=== PATIENT | male | born 1985 | race Caucasian/White ===

== ENCOUNTER 2021-09-15 06:07 | Emergency (ER) | payer SELFPAY ==
--- NOTE | 2021-09-15 06:27 | EDM.PDOC ---
<Finsese Hartmann - Last Filed: 09/15/21 06:37> ED HPI GENERAL MEDICAL PROBLEM - General Chief Complaint: General Stated Complaint: COUGHING/CONGESTION/SORE THROAT Time Seen by Provider: 09/15/21 07:19 - History of Present Illness INITIAL COMMENTS - FREE TEXT/NARRATIVE: CHIEF COMPLAINT(S): "Feeling bad." HISTORY OF PRESENT ILLNESS: This is a 36-year-old man without any significant past medical history who comes to the emergency department with a chief complaint of "feeling bad." Patient states that he is "feeling bad." The patient states that for approximately 2 days now he has been experiencing body aches and cold-like symptoms. He states he is also experiencing a sore throat but denies any trouble swallowing. He states that he has a cough which is productive of sputum. He describes a headache which is bifrontal not associated with any blurry vision, double vision or loss of vision. He denies any trouble walking speaking or swallowing. He states that he tried Tylenol without any relief. Last dose was 8 PM. He denies any chest pain, syncope, lower extremity edema, recent travel, recent surgery or prior history of DVT or PE. He states that he is incompletely vaccinated and has had 1 dose of what he thinks is the Pfizer vaccine. He denies any loss of taste or smell. REVIEW OF SYSTEMS: Constitutional: Denies fever, chills. Eyes: Denies eye pain Ears, Nose, Mouth, & Throat: Positive for runny nose denies earache Cardiovascular: Denies chest pain Respiratory: Positive for nonproductive cough. Denies shortness of breath Gastrointestinal: Positive for decreased appetite denies Nausea, vomiting, diarrhea, hematochezia. Genitourinary: Denies hematuria Skin:Denies a rash MSK: Positive for body aches Neurological: Positive for headache. Denies blurred vision, double vision, loss of vision, numbness, tingling, weakness Psychiatric: Denies depression PAST MEDICAL HISTORY: As per history of present illness and as reviewed below otherwise noncontributory. SURGICAL HISTORY: As per history of present illness and as reviewed below otherwise noncontributory. SOCIAL HISTORY: As per history of present illness and as reviewed below otherwise noncontributory. FAMILY HISTORY: As per history of present illness and as reviewed below otherwise noncontributory. EXAMINATION OF ORGAN SYSTEMS/BODY AREAS: Constitutional: Blood pressure was 111/71, heart rate 94, respiratory rate 17 with an oxygen saturation 98% on room air. Temperature 36.5 General: Young man who does not appear to be in acute distress Psychiatric: Appropriate mood and affect. Eyes: No scleral icterus or conjunctival erythema ENMT: Moist mucous membranes. No pharyngeal erythema Cardiovascular: Regular, rate, and rhythm. No gallops, murmurs, or rubs. Bilateral upper extremity pulses symmetric and intact. No peripheral edema. No JVD. Respiratory: Lungs clear to auscultation bilaterally. No wheezes, rales, or rhonchi. Gastrointestinal: Soft, non-tender, non-distended. Normoactive bowel sounds Genitourinary: No suprapubic tenderness Musculoskeletal: Normal range of motion. Skin: No lesions or abrasions. Neurological: Alert, GCS 15 MEDICAL DECISION MAKING AND COURSE IN THE ED WITH INTERPRETATION/REVIEW OF DIAGNOSTIC STUDIES: This is a 36-year-old man without any significant past medical history who comes to the emergency department with viral-like symptoms who has normal vital signs. At this time we will provide the patient with Toradol for symptomatic relief. Will obtain Covid, influenza and RSV swabs. I do not believe any further labs or imaging are indicated. Patient was amenable to this plan. DDx: Covid, influenza, RSV, other viral etiology DISPOSITION: [facility] swabs and final disposition CONDITION: Fair PROCEDURES: None FINAL IMPRESSION(S)/DIAGNOSES: 1. Acute viral upper respiratory infection Finesse Hartmann M.D. Generalized Pain Score (Numeric/FACES): 8 - Related Data Allergies Allergy/AdvReac Type Severity Reaction Status Date / Time No Known Allergies Allergy Verified 09/15/21 06:14 Past Medical History - Past Health History Medical/Surgical History: Denies Medical/Surgical History - Infectious Disease History Infectious Disease History: Reports: None Social & Family History - Family History Family Medical History: No Pertinent Family History ED ROS GENERAL - Review of Systems Review Of Systems: See Below ED EXAM, GENERAL - Physical Exam Exam: See Below Departure - Departure Disposition: Home, Self-Care 01 Clinical Impression: COVID-19 - Discharge Information Instructions: COVID-19: What to Do If You Are Sick- [facility] (11/22/2020) Referrals: PCP,None [Primary Care Provider] - Forms: ED Department Discharge Additional Instructions: Your Covid test is positive. You should isolate until cleared by the [facility]. You were placed on the list for the monoclonal antibody infusion. This can help prevent progression to serious disease. Someone will call you to help you set this up if you are interested. If you experience worsening difficulty breathing or chest pain you should come back to the emergency department. The following information is given to patients seen in the emergency department who are being discharged to home. This information is to outline your options for follow-up care. We provide all patients seen in our emergency department with a follow-up referral. The need for follow-up, as well as the timing and circumstances, are variable depending upon the specifics of your emergency department visit. If you don't have a primary care physician on staff, we will provide you with a referral. We always advise you to contact your personal physician following an emergency department visit to inform them of the circumstance of the visit and for follow-up with them and/or the need for any referrals to a consulting specialist. The emergency department will also refer you to a specialist when appropriate. This referral assures that you have the opportunity for follow-up care with a specialist. All of these measure are taken in an effort to provide you with optimal care, which includes your follow-up. Under all circumstances we always encourage you to contact your private physician who remains a resource for coordinating your care. When calling for follow-up care, please make the office aware that this follow-up is from your r ecent emergency room visit. If for any reason you are refused follow-up, please contact the [facility] Emergency Department at and asked to speak to the emergency department charge nurse. Please follow up with your primary care physician. If you do not have a primary care physician, see below: [facility] [address] [place] [id number] [facility] [address] [place] [address] [facility] [address] [place] [id number] Sepsis Event Note (ED) - Evaluation Sepsis Screening Result: No Definite Risk <Marck Aguilar - Last Filed: 09/15/21 07:19> ED HPI GENERAL MEDICAL PROBLEM - General Source of Information: Reports: Patient History Limitations: Reports: No Limitations Course - Vital Signs Last Recorded V/S: Last Vital Signs Temp 97.7 F 09/15/21 06:10 Pulse 94 09/15/21 06:10 Resp 17 09/15/21 06:10 BP 111/71 09/15/21 06:10 Pulse Ox 98 09/15/21 06:10 - Orders/Labs/Meds Labs: Laboratory Tests 09/15/21 Range/Units 06:20 Influenza Type A RNA NEGATIVE (NEGATIVE) Influenza Type B RNA NEGATIVE (NEGATIVE) SARS-CoV-2 RNA (LEE ANN) POSITIVE H (NEGATIVE) Meds: Medications Discontinued Medications Generic Name Dose Route Start Last Admin Trade Name Freq PRN Reason Stop Dose Admin Ketorolac Tromethamine 30 mg 09/15/21 06:37 09/15/21 06:58 Ketorolac 30 Mg/Ml Sdv IM 09/15/21 06:38 30 mg ONETIME ONE Administration - Re-Assessments/Exams Free Text/Narrative Re-Assessment/Exam: 09/15/21 07:17 Patient care transitioned from Dr. Hartmann pending COVID/influenza testing. COVID testing is positive. Will d/c with monoclonal antibody infusion. Return precautions discussed. Departure - Departure Time of Disposition: 07:18 Condition: Good Sepsis Event Note (ED) - Focused Exam Vital Signs: Vital Signs Temp Pulse Resp BP Pulse Ox 09/15/21 06:10 97.7 F 94 17 111/71 98
--- NOTE | 2021-09-15 06:27 | PCM.EKG ---
#1 Interpretation EKG Date: 09/15/21 Time: 06:15 Rhythm: NSR Rate (Beats/Min): 82 [place]: Normal P-Wave: Present QRS: Normal ST-T: Normal QT: Normal Comparison: NA - No Prior EKG EKG Interpretation Comments: Sinus Rhythm
[2021-09-15] MEDS ORDERED: Ketorolac 30 MG/ML SDV IM ONE (06:37)
[2021-09-15 07:04] LABS: CORONAVIRUS COVID-19 NAA POSITIVE (NEGATIVE); INFLUENZA A NAA NEGATIVE (NEGATIVE); INFLUENZA B NAA NEGATIVE (NEGATIVE)
== END 2021-09-15 07:20 | disposition home or self-care (01) ==
LOC: MW.ED 06:07
DX: U07.1 COVID-19 (principal); J06.9 Acute upper respiratory infection, unspecified
CPT/HCPCS: 0240U; 93005; 96372; 99284; J1885